=== PATIENT | female | born 1940 | race Caucasian/White ===

== ENCOUNTER 2023-10-22 10:05 | Inpatient (IN) | payer MEDICARE, OTHER, SELFPAY ==
[2023-10-20 13:37] VITALS: BP 143/72; BMI 26.1
[2023-10-20 13:40] VITALS: BP 143/72
[2023-10-20 14:00] VITALS: BP 154/73
[2023-10-20] MEDS: OFIRMEV 100 IV (14:07)
[2023-10-20 14:16] LABS: % Basophils 0.7 % (0-2); % Eosinophils 1.4 % (0-6); % Immature Granulocytes 0.5 % (0-0.5); % Lymphocytes 9.8 % (20.5-51.1); % Monocytes 6.1 % (1.7-9.3); % Neutrophils 81.5 % (42.2-75.2); Absolute Basophils 0.1 10^3/uL (0-0.2); Absolute Eosinophils 0.2 10^3/uL (0-0.7); Absolute Immature Granulocytes 0.1 10^3/uL (0-0.05); Absolute Lymphocytes 1.4 10^3/uL (1.2-3.4); Absolute Monocytes 0.8 10^3/uL (0.1-0.6); Absolute Neutrophils 11.3 10^3/uL (1.4-6.5); Hematocrit 32.9 % (37.0-47.0); Hemoglobin 10.6 g/dL (12.0-16.0); Mean Corp Hgb Conc. 32.2 g/dL (33.0-37.0); Mean Corpuscular Hgb 25.5 pg (27.0-31.0); Mean Corpuscular Volume 79.1 fL (81.0-99.0); Nucleated Red Blood Cells % 0 %; Platelet Count 405 10^3/uL (130-400); Red Blood Cell Count 4.16 10^6/uL (4.20-5.40); Red Cell Dist. Width 15.3 % (11.5-14.5); White Blood Cell Count 13.8 10^3/uL (4.8-10.8)
--- NOTE | 2023-10-20 14:37 | ED.GENMED ---
History of Present Illness
General
Chief Complaint: Musculo-Skeletal Complaint
Source: patient and spouse
Exam Limitations: none
Time Seen by Provider: 10/20/23 13:46
Travel History
Have you had any contact with someone who has COVID-19?: No
Do you have any symptoms of coronavirus? Fever > 100 degrees, chills, cough, shortness of breath, sore throat, loss of taste or smell, muscle aches, or headache?: No
History of Present Illness
History of Present Illness:
83-year-old female fell from her shower chair to wheelchair after positioning in the shower. Complaining of low back pain. No other specific complaints. Unable to sit up to transition.
Past History
Past History
ED Past Medical History: GERD, HTN, Hypercholesterolemia, IDDM and Other ('Encephalitis' - treated with steroids has memory loss and balance problems from this, lumbar compression fracture. Aphasia, Headache, )
ED Past Surgical History: Bowel resection (with Colostomy), Orthopedic (L knee aleksandar. Vertebroplasty) and Tonsilectomy
Social History
Tobacco: Non-smoker
Alcohol: Occasional
Drug: None
Personal:
Living: with family
Employment: Retired
Family History
Family History: Other (nc )
Review of Systems
Review of Systems
All Other Systems: Not applicable
Constitutional: Denies fever or chills
Respiratory: Reports no symptoms
Cardiac: Reports no symptoms
ABD/GI: Reports no symptoms
Phy Exam
Physical Exam
Physical Exam:
TRAUMA EXAM:
VITAL SIGNS: Vital signs reviewed, cooperative
DISTRESS: No active disease
EYES: Pupils reactive, no orbital trauma
NOSE: No deformity or epistaxis
FACE AND SCALP: No scalp or facial trauma, external canals no blood
NECK: Supple nontender
BACK:Back nontender, pelvis stable to compression
RESPIRATORY: No distress, breath sounds normal, no tender chest wall
CARDIAC: Tachycardic and regular no murmur
ABDOMEN: Soft nontender bowel sounds normal
SKIN: Skin intact no bleeding, color normal
EXTREMITIES: Unable to sit up secondary to pain. Points to the lower back although no spinal tenderness. No abrasion noted.
NEUROLOGICAL: Alert, orientedx2, no motor deficits
PSYCH: Mood affect normal
Course
Orders/Labs/Results
Orders:
Orders
10/20/23 13:54
Electrocardiogram (*1) Urgent
Reason for Study: Other
Other Reason for Exam: trauma
Cardiac Monitoring- Treatment ONCE
EKG- Treatment ONCE
CR Chest - 2 Views Urgent
Comment:
Reason For Exam: fall bacl pain
CR Pelvis - 1 Or 2 Views Urgent
Comment:
Reason For Exam: fall back pain
Lumbar Spine, 2 or 3 View [CR Lumbar Spine 2 Or 3 Views] Urgent
Comment:
Reason For Exam: fall. back pain
10/20/23 13:55
Acetaminophen 1000MG/100Ml [Ofirmev] 1,000 mg in 100 ml IV ONCE
Acetaminophen IV Indication:: ED Narcotic Naive Pt-ONCE
10/20/23 13:59
Basic Metabolic Panel Urgent
Complete Blood Count/With Diff Urgent
10/20/23 14:35
Straight cath- Treatment ONCE
10/20/23 Dinner
1800 calorie (15 carb) Diabetic
At Your Request: Limited Participation
10/20/23 15:12
Urinalysis Reflex To Culture Urgent
Date Specimen was Collected: 10/20/23
Time Specimen was Collected: 15:10
Urine Microscopic Reflex Cult Urgent
Urine Culture Urgent
BENJI Source: U
Specimen Description:
Date Specimen was Collected: 10/20/23
Time Specimen was Collected: 15:10
10/20/23 15:42
0.9% Sodium Chloride 500 ml [Nss] 500 ml IV BOLUS
CefTRIAXone [Rocephin] 1,000 mg IV NOW STA
10/20/23 16:11
Insulin Detemir Levemir [Levemir] 40 units Subcutaneous Insulin Syringe [Syringe-Insulin] 0 unit SC ONCE
10/20/23 16:15
Lidocaine [Lidocaine 4% Patch] 1 patch TOPICAL DAILY
10/20/23 16:18
Insulin Detemir Levemir [Levemir] 20 units Subcutaneous Insulin Syringe [Syringe-Insulin] 0 unit SC ONCE
10/20/23 16:27
Admit/Transfer Patient As Directed
Co-Sign Provider:
Level of Care: Observation services
Assign to:: Medical/Surgical
Physician / Group: fatimah charles
Diagnosis: pyuria, fall w/L2 compression fx, vaginal seth, Dm2 hyperglycemia
Code Status As Directed
Resuscitation Status: Do not resuscitate
Reached after discussion with pt or family/Healthcare POA: Yes
Based on pt advanced directive or healthcare POA form: Yes
Decision communicated with: Per patient with Jesus at bedside
DNR Bracelet Application ONCE
10/20/23 16:32
Fluconazole [Diflucan] 150 mg PO NOW STA
10/20/23 18:23
Acetaminophen [Tylenol] 650 mg PO Q4HPRN PRN
Bisacodyl [Dulcolax] 10 mg RECTAL [id number] PRN
Dextrose 50%-Water [Dextrose 50% Syringe] 12.5 grams IV [id number] PRN
Docusate W/Senna [Senokot-S] 1 tablet PO BIDPRN PRN
Enoxaparin Sodium [Lovenox] 40 mg SC QPM
Glucagon [GlucaGen] 1 mg IM PRN PRN
Ketorolac [Toradol] 15 mg IV Q6HPRN PRN
Polyethylene Glycol Powder [Miralax] 17 grams PO DAILYPRN PRN
10/20/23 18:23
Activity As Directed
Activity Level: With Assistance
Comment: Transfers to wheelchair only
Bedside Glucose Monitoring As Directed
Frequency: AC&HS
Comment: Change to q6h if pt on TPN, tube feeding or not eating
Intake/ Output As Directed
Frequency: Per unit guidelines
Vital Signs As Directed
Frequency: Per unit guidelines
Weight As Directed
Frequency: Daily
Ot Eval And Treat Routine
Pt Eval And Treat Routine
Activity Level: With Assistance
DX Deep Vein Thrombosis Video Routine
10/20/23 19:00
METFORMIN HCl [Glucophage] 1,000 mg PO BID AT 0800,1700
10/20/23 20:00
Remove Patch [Remove Lidocaine Patch] See Dose Instructions REMOVE DAILY@1999
10/21/23 06:00
Basic Metabolic Panel IN AM
Complete Blood Count/With Diff IN AM
Glycohemoglobin (HgbA1c) IN AM
10/21/23 07:30
Insulin Aspart Corrective Low [Novolog Flexpen-Low Resistance] See Protocol SC AC
10/21/23 08:00
Diltiazem Extended Release [Cardizem Cd] 240 mg PO DAILY
Metoprolol [Lopressor] 100 mg PO DAILY
Pantoprazole [Protonix] 40 mg PO DAILY
10/21/23 20:00
Remove Patch [Remove Lidocaine Patch] See Dose Instructions REMOVE DAILY@1999
Abnormal Lab Results
10/20/23 10/20/23
13:59 15:12
WBC 13.8 H 10^3/uL
(4.8-10.8)
RBC 4.16 L 10^6/uL
(4.20-5.40)
Hgb 10.6 L g/dL
(12.0-16.0)
Hct 32.9 L %
(37.0-47.0)
MCV 79.1 L fL
(81.0-99.0)
MCH 25.5 L pg
(27.0-31.0)
MCHC 32.2 L g/dL
(33.0-37.0)
RDW 15.3 H %
(11.5-14.5)
Plt Count 405 H 10^3/uL
(130-400)
Abs Immat Gran (auto) 0.1 H 10^3/uL
(0-0.05)
Absolute Neuts (auto) 11.3 H 10^3/uL
(1.4-6.5)
Absolute Monos (auto) 0.8 H 10^3/uL
(0.1-0.6)
Neutrophils % 81.5 H %
(42.2-75.2)
Lymphocytes % 9.8 L %
(20.5-51.1)
Sodium 132 L mmol/L
(135-145)
Glucose 342 H mg/dl
(70-99)
Urine Ketones 2+ A
(Negative)
Ur Occult Blood Reflex 2+ A
(Negative)
Leukocyte Esterase Rfl 2+ A
(Negative)
Urine RBC >100 A /HPF
(0-2)
Urine WBC (Reflex) >100 A /HPF
(0-5)
Urine Bacteria (Reflex) Many A
(Negative)
Urine Glucose 3+ A
(Negative)
10/20/23 13:59
10/20/23 13:59
Vital Signs
Initial and Last Documented VS:
Initial Vital Signs
Temp Pulse Resp BP Pulse Ox
99 F 112 14 143/72 96
10/20/23 13:37 10/20/23 13:37 10/20/23 13:37 10/20/23 13:37 10/20/23 13:37
Last Documented Vital Signs
Temp Pulse Resp BP Pulse Ox
98.0 F 113 18 168/86 96
10/20/23 23:27 10/20/23 23:27 10/20/23 23:27 10/20/23 23:27 10/20/23 23:27
*Radiology
Radiology exam reviewed: preliminary read by ED provider (Negative x-rays) and radiology read reviewed (L2 compression fracture)
*Pulse Oximetry
Patient hypoxic: no
*EKG
Interpreted by ED Provider?: Yes
Interpretation: abnormal
Comparison EKG: changes noted
Heart Rate: 99
Rate: normal
Rhythm: sinus
[place]: normal axis
QRS Pattern: normal QRS
Ischemia: non-specific ST changes
*Accordion Tuner Interpretation
Rate: tachycardiac
Interpretation: abnormal
Heart Rate: 102
Rhythm: sinus
*Critical Care Note
Total Time (30-74mins, 75-104mins- exclusive of procedures): Not Applicable
Update Note
Update Note:
Unable to sit up secondary to pain. Secondary UTI. Inpatient management
ED Attending Note
-
Portions of this chart may have been created with voice recognition software.� Occasional wrong word or��sound alike� substitutions may have occurred due to the inherent limitations of voice recognition software.
Discharge Plan
Departure
Patient Disposition: Admit
Date of Disposition: 10/20/23
Time of Disposition: 15:44
Admit to: Med/Surg
Presentation/result/management discussed w/ accepting MD/DO: Hospitalist
Discharge Problem:
Fall/severe lower back pain, UTI, L2 compression fracture
Interventions
Interventions:
*Risk Screen - Suicide Last Done: 10/20/23 19:55
*General Assessment Last Done: 10/20/23 13:37
*Neglect/Abuse Screening Last Done: 10/20/23 13:37
ED- Fall Risk Assessment Last Done: 10/20/23 13:44
*ED COVID-19 Vaccine History Last Done: 10/20/23 13:37
*Nursing Disposition Last Done: 10/20/23 18:14
ED-Musculoskeletal Assessment Last Done: 10/20/23 13:44
Discharge Date and Time
Discharge Date/Time: 10/20/23 18:15
[2023-10-20 14:53] LABS: Blood Urea Nitrogen 14 mg/dl (7-17); Calcium 9.3 mg/dl (8.4-10.2); Carbon Dioxide 25 mmol/L (22-30); Chloride 98 mmol/L (98-107); Estimated Creatinine Clearance 47 ml/min; Glucose 342 mg/dl (70-99); Potassium 3.8 mmol/L (3.5-5.1); Sodium 132 mmol/L (135-145); eGFR > 60.00
[2023-10-20 15:00] VITALS: BP 129/94
[2023-10-20 15:30] LABS: Urine Albumin Trace (Neg - Trace); Urine Bilirubin Negative (Negative); Urine Character Very Cloudy (Clear); Urine Color Yellow; Urine Glucose 3+ (Negative); Urine Ketone 2+ (Negative); Urine Leukocyte 2+ (Negative); Urine Nitrite Negative (Negative); Urine Occult Blood 2+ (Negative); Urine Specific Gravity 1.025 (<1.030); Urine Urobilinogen Negative (Neg - 1+)
[2023-10-20 15:35] LABS: Urine Squamous Cell 0-2 /LPF (Few)
[2023-10-20 15:36] LABS: Urine White Cell >100 /HPF (0-5)
[2023-10-20 15:37] LABS: Urine Bacteria Many (Negative); Urine Red Blood Cell >100 /HPF (0-2)
--- NOTE | 2023-10-20 15:50 | HPS.HSE ---
Family Physician
<WILLIAM Melendez - Last Filed: 10/20/23 16:38>
-
Family Physician: Paul Rosales
Chief Complaint
<WILLIAM Melendez - Last Filed: 10/20/23 16:38>
-
Fall, back pain, vaginal itching/burning
History of Present Illness
83-year-old female who was transferring from a shower chair to her wheelchair when she fell in the shower. She is complaining of lower back pain and unable to sit upright. Her found her lying on her left side outside of the shower. She is
also complaining of vaginal itching and burning for the last 3 to 4 days. She has history of DM 2 and has current hyperglycemia. She did not take her a.m. Levemir 40 units. She denies headache, LOC, fever, chills, chest pain, palpitations,
shortness breath, cough, abdominal pain, nausea, vomiting, diarrhea. She is past medical history of HTN, HLD, DM2, GERD, lumbar compression fracture, aphasia, headaches, encephalitis, chronic memory loss and balance disorder from prior
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
Medical History
<WILLIAM Melendez - Last Filed: 10/20/23 16:38>
Past Medical History
Past Medical History: Reports Other
Additional Past Medical History:
HTN
HLD
DM2
GERD
lumbar compression fracture
Hx vertebroplasty
aphasia, headaches
encephalitis
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
bowel resection with colostomy.
Past Surgical History: Reports Other
Additional Past Surgical History:
Bowel resection with colostomy
Vertebroplasty 2014
Left knee surgery
Tonsillectomy
Social History
Tobacco: Non-smoker
Alcohol: None
Drug: None
Personal:
Living: With Family ( Jesus)
Employment: Retired
Family History
Family History: Unable to Obtain
Allergies / Home Medications
Allergies reflects when Allergies were last updated in [employer].
Home Medications with original date entered in [employer]
Allergy/Medication List:
Allergies
Allergy/AdvReac Type Severity Reaction Status Date / Time
No Known Allergies Allergy Verified 10/09/22 18:58
Home Medications
diltiazem HCl 240 mg capsule,extended release 24 hr 240 mg PO DAILY ##0 07/23/15
pantoprazole 40 mg tablet,delayed release 40 mg PO DAILY ##0 07/23/15
metoprolol tartrate 100 mg tablet 100 mg PO DAILY 03/25/17
metformin 500 mg tablet 1,000 mg (2 x 500 mg) PO BID 60 days #0 tabs 05/06/18
insulin detemir U-100 100 unit/mL (3 mL) subcutaneous pen (Levemir FlexTouch U-100 Insulin) 40 unit SC DAILY@0800 05/07/18
Review of Systems
<WILLIAM Melendez - Last Filed: 10/20/23 16:38>
-
History Source: Patient and Family ( Jesus)
A 12 point ROS was completed and negative except as noted: Yes
Constitutional: Denies Fever, Fatigue or Chills
EENT: Denies Sore Throat or Runny Nose
Respiratory: Denies Cough or Trouble Breathing
Cardiac: Denies Chest Pain, Diaphoresis, Palpitations or Syncope
Abdomen/GI: Denies Abdominal Pain, Nausea, Vomiting, Diarrhea, Constipated, Bloody Stools or Black Stools
: Reports Incontinence (Chronic wears depends) and Other (Vaginal itching/burning); Denies Dysuria, Frequency, Flank Pain, Difficulty Voiding or Urgency
Musculoskeletal: Reports Other (Lower back pain); Denies Joint Pain or Edema
Skin: Denies Itching or Rash
Neurological: Denies Dizzy, Headache or Weakness
Hematologic/Lymphatic: Reports No Symptoms
Psych: Reports Calm
Physical Exam
<WILLIAM Melendez - Last Filed: 10/20/23 16:38>
Vital Signs
Vital Signs
Temp Pulse Resp BP Pulse Ox
99 F 101 13 129/94 94
10/20/23 13:37 10/20/23 15:00 10/20/23 15:00 10/20/23 15:00 10/20/23 15:00
Physical Exam
General: Comfortable
Respiratory: Clear; No Wheezes, Rales or Rhonchi
Cardiac: S1/S2 and Regular Rhythm; No Murmur, Rub, Gallop or Peripheral Edema
Breast: Deferred by me
GI: Soft, Non Tender, Non Distended, Normal Bowel Sounds and No Hepatosplenomegaly
Rectal: Deferred by Provider
Genito-urinary: Deferred by me
Musculoskeletal: No Clubbing, No Edema and Other (Lumbar tenderness on palpation, distal sensation intact)
Skin: Warm and Dry; No Rash
Neuro: Awake, Alert, Oriented (To name, place, but not all of medical history) and Nonfocal/grossly intact; No Slurred Speech, Facial Droop or Tremors
Psych: Calm
Laboratory Results
<WILLIAM Melendez - Last Filed: 10/20/23 16:38>
-
10/20/23 13:59
10/20/23 13:59
Impression/Plan
<WILLIAM Melendez - Last Filed: 10/20/23 16:38>
-
Impression/plan:
OBS MedSurg
#SIRS with Postive Pyuria asymptomatic
#Hx urine Serratia marcescens 08/17/2022-ceftriaxone/Unasyn, Augmentin, Macrodantin RESISTANT
#-Klebsiella oxytoca 02/18/2020-ampicillin resistant
Positive pyuria, WBC 13.8, 99 F, HR 101, 129/94
-Follow urine culture
-Hold Antibiotics
CXR: Unremarkable chest
#Fall likely secondary to CHornic amb dysfunction
# Back pain with NEW L2 superior endplate fracture 2/2 FALL
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
#Severe DDD L5-S1/osteoporosis
-Lidocaine patch
-Tylenol as needed
-Consult PT/OT
-Fall precautions
Pelvis x-ray/lumbar x-ray:1. New superior endplate fracture of L2 with mild loss of vertebral body height.
2. Chronic superior endplate fractures of L1 and T12 (previously treated with vertebroplasty).
3. Severe discogenic degenerative disease at L5/S1.
4. Moderate discogenic degenerative disease at L4/L5.
5. No radiographic evidence for acute pelvic or proximal femoral fracture.
6. Osteoporosis.
#Vaginal Angeline symptomatic vaginal itching, burning Hx hyperglycemia
-Diflucan 150 mg now
#DM2 with hyperglycemia
BS 342
-Accu-Cheks with SSI, check HgbA1c
-Will give Levemir 40 units subcu now as patient missed a.m. dose
-Continue Levemir subcu 20 units NOW
-Continue Levemir 40 units in a.m., metformin at 1000 mg twice daily
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
#HTN�benign
BP 129/94
-Continue diltiazem 240 mg daily, metoprolol tartrate 100 mg daily
#GERD
-Continue Protonix 40 mg daily
#Bowel perforation resection with colostomy
DVT prophylaxis
Subcu Lovenox
DNR per pt with Jesus present
<Ankush Fowler DO - Last Filed: 10/20/23 17:01>
-
Impression/plan:
OBS MedSurg
#SIRS with Postive Pyuria asymptomatic
#Hx urine Serratia marcescens 08/17/2022-ceftriaxone/Unasyn, Augmentin, Macrodantin RESISTANT
#-Klebsiella oxytoca 02/18/2020-ampicillin resistant
Positive pyuria, WBC 13.8, 99 F, HR 101, 129/94
-Follow urine culture
-Hold Antibiotics
CXR: Unremarkable chest
#Fall likely secondary to CHornic amb dysfunction
# Back pain with NEW L2 superior endplate fracture / FALL
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
#Severe DDD L5-S1/osteoporosis
-Lidocaine patch
-Tylenol as needed
-Consult PT/OT
-Fall precautions
Pelvis x-ray/lumbar x-ray:1. New superior endplate fracture of L2 with mild loss of vertebral body height.
2. Chronic superior endplate fractures of L1 and T12 (previously treated with vertebroplasty).
3. Severe discogenic degenerative disease at L5/S1.
4. Moderate discogenic degenerative disease at L4/L5.
5. No radiographic evidence for acute pelvic or proximal femoral fracture.
6. Osteoporosis.
#Vaginal Angeline symptomatic vaginal itching, burning Hx hyperglycemia
-Diflucan 150 mg now
#DM2 with hyperglycemia
BS 342
-Accu-Cheks with SSI, check HgbA1c
-Will give Levemir 40 units subcu now as patient missed a.m. dose
-Continue Levemir subcu 20 units NOW
-Continue Levemir 40 units in a.m., metformin at 1000 mg twice daily
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
#HTN�benign
BP 129/94
-Continue diltiazem 240 mg daily, metoprolol tartrate 100 mg daily
#GERD
-Continue Protonix 40 mg daily
#Bowel perforation resection with colostomy
DVT prophylaxis
Subcu Lovenox
DNR per pt with Jesus present
Attending Note:
Patient seen/examined and discussed with LUIS ANTONIO Lay and I agree with her note.
Gen-AAOx3, NAD
HEENT-NC, AT, anicteric, clear oral mm
Neck-supple
CV-reg, no M, +S1/S2
Lungs-clear B/L
Abd-soft, NT, ND
Ext-no edema
Musculoskeletal-no cyanosis, clubbing
Skin-warm and dry
Neuro-grossly non-focal
Psych-calm, cooperative
Intractable back pain - due to lumbar vertebral compression fracture. Admit to Med/Surg for pain control. PT/OT consult.
Acute traumatic L2 Vertebral compression fracture - due to fall and underlying osteoporosis. Start IV Toradol as needed, acetaminophen as needed, Lidoderm patch, PT.
If no improvement in pain with conservative management, consider vertebroplasty. Discussed with patient and .
Chronic vertebral compression fractures -involving T12, L1. Treated with vertebroplasty in 2014.
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 Does transfer. 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
DM2 with hyperglycemia -glucose 342 on BMP. Has not taken her diabetes medications today. Will resume. Check hemoglobin A1c.
Pseudohyponatremia -due to hyperglycemia.
Chronic anemia -hemoglobin at baseline.
Asymptomatic pyuria -urinalysis noted. Denies UTI symptoms. Pyuria could be related to vaginitis as she has vaginal symptoms. Patient unclear as to whether or not she has a vaginal discharge. Will give an empiric dose of fluconazole.
DNR
[2023-10-20] MEDS: NSS 500 IV (15:51)
[2023-10-20] MEDS: ROCEPHIN 1000 MG IV (15:52)
[2023-10-20 16:55] LABS: Glucose - Point of Care 411 mg/dl (70-99)
[2023-10-20] MEDS: LIDOCAINE 4% PATCH 1 PATCH TOPICAL (16:55)
[2023-10-20] MEDS: DIFLUCAN 150 MG PO (16:55)
[2023-10-20] MEDS: LEVEMIR 0.200000000000000011 UNITS SC (16:58)
[2023-10-20 19:00] VITALS: BP 152/79; BMI 26.4
[2023-10-20] MEDS: LOVENOX 40 MG SC (20:29)
[2023-10-20] MEDS: GLUCOPHAGE 1000 MG PO (20:29)
[2023-10-20 21:56] LABS: Glucose - Point of Care 447 mg/dl (70-99)
[2023-10-20 22:16] LABS: Glucose 420 mg/dl (70-99)
[2023-10-20] MEDS: NOVOLOG FLEXPEN 6 UNITS SC (22:30)
[2023-10-20 23:27] VITALS: BP 168/86
[2023-10-21 00:36] LABS: Glucose - Point of Care 205 mg/dl (70-99)
--- NOTE | 2023-10-21 04:45 | DOWNTIME ---
There was a [employer]at Cover [employer]er Downtime on 10/21/2023 from 0100 to 10/21/2023 at 0439. Downtime documentation of patient's care, including medication administrations, has been reconciled in the electronic record per guidelines. Refer to the
patient's paper chart under the miscellaneous tab to see printed paper medication records and downtime forms.
[2023-10-21 05:03] VITALS: BMI 26.3
[2023-10-21 07:55] VITALS: BP 154/82
[2023-10-21 08:19] LABS: Glucose - Point of Care 171 mg/dl (70-99)
[2023-10-21 08:40] VITALS: BP 154/81; PULSE 112
[2023-10-21 08:45] VITALS: BP 156/78; O2SAT 98
[2023-10-21] MEDS: GLUCOPHAGE 1000 MG PO ×2 (08:59→17:21)
[2023-10-21] MEDS: CARDIZEM CD 240 MG PO (08:59)
[2023-10-21] MEDS: LEVEMIR 0.400000000000000022 UNITS SC (08:59)
[2023-10-21] MEDS: NOVOLOG FLEXPEN-LOW RESISTANCE 1 UNITS SC (08:59)
[2023-10-21] MEDS: LOPRESSOR 100 MG PO (09:00)
[2023-10-21] MEDS: PROTONIX 40 MG PO (09:00)
[2023-10-21] MEDS: LIDOCAINE 4% PATCH 1 PATCH TOPICAL (09:00)
[2023-10-21] MEDS: TORADOL 15 MG IV ×2 (09:10→15:11)
--- NOTE | 2023-10-21 09:19 | W.PN.HOSP.TC ---
Today's Communication/Plan
-
Back brace
Analgesics
PT
Assessment / Plan
Assessment / Plan
Gen-AAOx3, NAD
HEENT-NC, AT, anicteric, clear oral mm
Neck-supple
CV-reg, no M, +S1/S2
Lungs-clear B/L
Abd-soft, NT, ND
Ext-no edema
Musculoskeletal-no cyanosis, clubbing
Skin-warm and dry
Neuro-grossly non-focal
Psych-calm, cooperative
Intractable back pain - due to lumbar vertebral compression fracture. TLSO back brace ordered, should wear it when out of bed. Discussed with nursing. PT/OT. Continue analgesics.
Acute traumatic L2 Vertebral compression fracture - due to fall and underlying osteoporosis. Start IV Toradol as needed, acetaminophen as needed, Lidoderm patch, PT.
If no improvement in pain with conservative management, consider vertebroplasty. Discussed with patient and .
Chronic vertebral compression fractures -involving T12, L1. Treated with vertebroplasty in 2014.
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 Does transfer. 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
DM2 with hyperglycemia -glucose 171 this morning. Check hemoglobin A1c. Levemir and metformin resumed.
Pseudohyponatremia -due to hyperglycemia.
Chronic anemia -hemoglobin at baseline.
Asymptomatic pyuria -urinalysis noted. Denies UTI symptoms. Pyuria could be related to vaginitis as she has vaginal symptoms. Patient unclear as to whether or not she has a vaginal discharge. Will give an empiric dose of fluconazole.
DNR
Anticipated Discharge: 24 - 48 hours
Subjective/Interval History
-
Date of Service: October 21, 2023
Patient seen and examined. Sitting in the chair. Still with significant pain with movement.
Objective Data
-
Labs:
Laboratory Results
10/20/23 10/21/23
21:54 08:56
WBC Pending
Hgb Pending
Hct Pending
Plt Count Pending
Sodium Pending
Potassium Pending
Chloride Pending
Carbon Dioxide Pending
BUN Pending
Creatinine Pending
Glucose 420 H Pending
Calcium Pending
Vital Signs:
Vital Signs
Temp Pulse Resp BP Pulse Ox
98.3 F 111 16 154/82 95
10/21/23 07:55 10/21/23 07:55 10/21/23 07:55 10/21/23 07:55 10/21/23 07:55
I&O
10/20/23 10/21/23 10/22/23
06:59 06:59 06:59
Intake Total 360 / 360
Balance 360 / 360
Review of Systems
-
History Source: Patient
All other systems: Reviewed and negative
[2023-10-21 10:19] LABS: % Basophils 0.6 % (0-2); % Eosinophils 2.1 % (0-6); % Immature Granulocytes 0.7 % (0-0.5); % Lymphocytes 16.1 % (20.5-51.1); % Monocytes 6.3 % (1.7-9.3); % Neutrophils 74.2 % (42.2-75.2); Absolute Basophils 0.1 10^3/uL (0-0.2); Absolute Eosinophils 0.3 10^3/uL (0-0.7); Absolute Immature Granulocytes 0.1 10^3/uL (0-0.05); Absolute Lymphocytes 1.9 10^3/uL (1.2-3.4); Absolute Monocytes 0.8 10^3/uL (0.1-0.6); Absolute Neutrophils 8.9 10^3/uL (1.4-6.5); Hematocrit 33.8 % (37.0-47.0); Hemoglobin 10.5 g/dL (12.0-16.0); Mean Corp Hgb Conc. 31.1 g/dL (33.0-37.0); Mean Corpuscular Hgb 24.6 pg (27.0-31.0); Mean Corpuscular Volume 79.2 fL (81.0-99.0); Nucleated Red Blood Cells % 0 %; Platelet Count 384 10^3/uL (130-400); Red Blood Cell Count 4.27 10^6/uL (4.20-5.40); Red Cell Dist. Width 15.4 % (11.5-14.5)
[2023-10-21 11:11] LABS: Blood Urea Nitrogen 10 mg/dl (7-17); Calcium 9.5 mg/dl (8.4-10.2); Carbon Dioxide 24 mmol/L (22-30); Chloride 99 mmol/L (98-107); Estimated Creatinine Clearance 60 ml/min; Glucose 172 mg/dl (70-99); Potassium 4.5 mmol/L (3.5-5.1); Sodium 132 mmol/L (135-145); eGFR > 60.00
[2023-10-21 11:58] LABS: Glucose - Point of Care 343 mg/dl (70-99)
[2023-10-21] MEDS: NOVOLOG FLEXPEN-LOW RESISTANCE 4 UNITS SC (12:41)
[2023-10-21 12:48] LABS: Glycohemoglobin (HgbA1c) 11.8 % (4.0-5.6)
[2023-10-21 15:55] VITALS: BP 126/59
[2023-10-21 17:14] LABS: Glucose - Point of Care 299 mg/dl (70-99)
[2023-10-21] MEDS: LOVENOX 40 MG SC (17:21)
[2023-10-21] MEDS: NOVOLOG FLEXPEN-LOW RESISTANCE 3 UNITS SC (17:22)
[2023-10-21] MEDS: NOVOLOG FLEXPEN 6 UNITS SC (17:22)
[2023-10-21 21:53] LABS: Glucose - Point of Care 258 mg/dl (70-99)
[2023-10-21 23:00] VITALS: BP 151/67
[2023-10-22 08:00] VITALS: BP 167/82
--- NOTE | 2023-10-22 09:15 | W.PN.HOSP.TC ---
Today's Communication/Plan
-
Add oxycodone as needed
Bowel regimen
Change Toradol to [id number]
Assessment / Plan
Assessment / Plan
Gen-AAOx3, NAD
HEENT-NC, AT, anicteric, clear oral mm
Neck-supple
CV-reg, no M, +S1/S2
Lungs-clear B/L
Abd-soft, NT, ND
Ext-no edema
Musculoskeletal-no cyanosis, clubbing
Skin-warm and dry
Neuro-grossly non-focal
Psych-calm, cooperative
Intractable back pain - due to lumbar vertebral compression fracture. TLSO back brace when out of bed. Will change Toradol to every 6 hours [id number]. Add oxycodone 5 mg every 4 hours as needed. Bowel regimen. Continue PT. Offered
vertebroplasty but will need MRI first. Patient undecided about whether or not she wants to pursue.
Acute traumatic L2 Vertebral compression fracture - due to fall and underlying osteoporosis.
Chronic vertebral compression fractures -involving T12, L1. Treated with vertebroplasty in 2014.
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 Does transfer. 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
DM2 with hyperglycemia - Hemoglobin A1c 11.8%. Continue Levemir 40 units daily, NovoLog 6 units AC, low resistance NovoLog scale.
Pseudohyponatremia -due to hyperglycemia.
Chronic anemia -hemoglobin at baseline.
Asymptomatic pyuria -urinalysis noted. Denies UTI symptoms. Pyuria could be related to vaginitis as she has vaginal symptoms. Given a dose of fluconazole on admission.
DNR
Dispo -PT is recommending SNF. Hope to try to get her pain under better control prior to discharge.
Anticipated Discharge: 24 - 48 hours
Subjective/Interval History
-
Date of Service: October 22, 2023
Patient seen and examined. Still with severe lower back pain.
Objective Data
-
Vital Signs:
Vital Signs
Temp Pulse Resp BP Pulse Ox
99.0 F 100 18 167/82 96
10/22/23 08:00 10/22/23 08:00 10/22/23 08:00 10/22/23 08:00 10/22/23 08:00
I&O
10/21/23 10/22/23 10/23/23
06:59 06:59 06:59
Intake Total 360 / 360 600 / 600
Balance 360 / 360 600 / 600
Review of Systems
-
History Source: Patient
All other systems: Reviewed and negative
[2023-10-22 09:19] LABS: Glucose - Point of Care 173 mg/dl (70-99)
[2023-10-22] MEDS: CARDIZEM CD 240 MG PO (10:13)
[2023-10-22] MEDS: PROTONIX 40 MG PO (10:13)
[2023-10-22] MEDS: LIDOCAINE 4% PATCH 1 PATCH TOPICAL (10:13)
[2023-10-22] MEDS: LOPRESSOR 100 MG PO (10:13)
[2023-10-22] MEDS: LEVEMIR 0.400000000000000022 UNITS SC (10:13)
[2023-10-22] MEDS: GLUCOPHAGE 1000 MG PO ×2 (10:13→17:55)
[2023-10-22] MEDS: NOVOLOG FLEXPEN 6 UNITS SC ×3 (10:14→17:54)
[2023-10-22] MEDS: TORADOL 15 MG IV ×3 (10:14→21:25)
[2023-10-22] MEDS: NOVOLOG FLEXPEN-LOW RESISTANCE 1 UNITS SC (10:14)
[2023-10-22 12:18] LABS: Glucose - Point of Care 286 mg/dl (70-99)
[2023-10-22] MEDS: NOVOLOG FLEXPEN-LOW RESISTANCE 3 UNITS SC (12:29)
--- NOTE | 2023-10-22 12:31 | VNURNOTE ---
Home Health Liaison met with patient and spouse at 1530 on 10/20 to discuss [facility] nurse/therapy, visits, schedule and homebound status. Patient is agreeable and understands that visits at home will be 2-3 x per week to assess and teach medical
management. Patient's spouse Jesus is her primary caregiver and insists that he is able to manage her at home. Private caregivers discussed and he stated that they have someone M-W-F for couple of hours.
[facility] brochure provided with contact information. Patient is aware that [facility] will contact them for start of care in 1-2 days after discharge from .
[facility] referral completed in saved mode until plan is clearer and patient is closer to discharge.
[2023-10-22] MEDS: TORADOL IV (12:34)
--- NOTE | 2023-10-22 14:57 | CM ---
Patient seen bedside with spouse.
Patient lives in [id number] home with spouse.Patient non ambulatory but can transfe to WC.
Patient has 2 steps into the home, but uses a ramp.
Patient has assist from .
Patient had [facility] in the past and was at [facility].
PT?OT recommending skilled rehab, patient and spouse declined.
They would like home with [facility].
IMM completed.
PCP: Dr Rosales
Pharmacy: [facility] [address]
Plan: home with [facility]
[2023-10-22 15:00] VITALS: BP 144/68; PULSE 79; O2SAT 97
[2023-10-22 16:00] VITALS: BP 137/64
[2023-10-22 17:45] LABS: Glucose - Point of Care 302 mg/dl (70-99)
[2023-10-22] MEDS: LOVENOX 40 MG SC (17:55)
[2023-10-22] MEDS: NOVOLOG FLEXPEN-LOW RESISTANCE 4 UNITS SC (17:55)
[2023-10-22 21:45] LABS: Glucose - Point of Care 243 mg/dl (70-99)
[2023-10-22 23:10] VITALS: BP 113/85
[2023-10-23] MEDS: TORADOL 15 MG IV ×2 (04:25→11:50)
[2023-10-23 07:52] LABS: Glucose - Point of Care 109 mg/dl (70-99)
[2023-10-23] MEDS: NOVOLOG FLEXPEN-LOW RESISTANCE SC (08:07)
[2023-10-23 08:12] VITALS: BP 134/53
--- NOTE | 2023-10-23 08:48 | W.PN.HOSP.TC ---
Today's Communication/Plan
-
Adjust insulin
Discharge
Assessment / Plan
Assessment / Plan
Gen-AAOx3, NAD
HEENT-NC, AT, anicteric, clear oral mm
Neck-supple
CV-reg, no M, +S1/S2
Lungs-clear B/L
Abd-soft, NT, ND
Ext-no edema
Musculoskeletal-no cyanosis, clubbing
Skin-warm and dry
Neuro-grossly non-focal
Psych-calm, cooperative
Intractable back pain - due to lumbar vertebral compression fracture. TLSO back brace when out of bed. Pain much improved with [id number] anti-inflammatory, Toradol. Can discharge on Celebrex. Continue to use back brace at home. Arrange
for visiting nurse and home PT. Discussed with patient and and they are agreeable with plan. Case management informed.
Acute traumatic L2 Vertebral compression fracture - due to fall and underlying osteoporosis.
Chronic vertebral compression fractures -involving T12, L1. Treated with vertebroplasty in 2014.
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 Does transfer. 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
DM2 with hyperglycemia - Hemoglobin A1c 11.8%. Continue Levemir 40 units daily and metformin. We added NovoLog here in the hospital. Will increase dose to 10 units before meals. Discussed with patient's regarding diabetes regimen on
discharge. Close outpatient follow-up with PCP next week. and visiting nurse administer her insulin at home.
Pseudohyponatremia -due to hyperglycemia.
Chronic anemia -hemoglobin at baseline.
Asymptomatic pyuria -urinalysis noted. Denies UTI symptoms. Pyuria could be related to vaginitis as she has vaginal symptoms. Given a dose of fluconazole on admission.
DNR
Dispo -plan to discharge home today with visiting nurse and home PT. Patient and agreeable. Updated case management.
32 minutes spent in discharge process.
Anticipated Discharge: Today
Subjective/Interval History
-
Date of Service: October 23, 2023
Patient seen and examined. Feeling better. Less pain today. No complaints.
Objective Data
-
Vital Signs:
Vital Signs
Temp Pulse Resp BP Pulse Ox
98 F 86 18 134/53 95
10/23/23 08:12 10/23/23 08:12 10/23/23 08:12 10/23/23 08:12 10/23/23 08:12
I&O
10/22/23 10/23/23 10/24/23
06:59 06:59 06:59
Intake Total 600 / 600 480 / 480 240 / 240
Balance 600 / 600 480 / 480 240 / 240
Review of Systems
-
History Source: Patient
All other systems: Reviewed and negative
[2023-10-23] MEDS: LOPRESSOR 100 MG PO (08:52)
[2023-10-23] MEDS: GLUCOPHAGE 1000 MG PO (08:52)
[2023-10-23] MEDS: LEVEMIR 0.400000000000000022 UNITS SC (08:53)
[2023-10-23] MEDS: CARDIZEM CD 240 MG PO (08:53)
[2023-10-23] MEDS: PROTONIX 40 MG PO (08:53)
[2023-10-23] MEDS: NOVOLOG FLEXPEN 6 UNITS SC (08:54)
[2023-10-23] MEDS: LIDOCAINE 4% PATCH 1 PATCH TOPICAL (08:55)
--- NOTE | 2023-10-23 09:01 | W.DS.TRANS ---
DC Summary - Framing Inspector
-
Discharge Instructions:
Discharge Diagnosis/Procedures L2 vertebral compression fracture, uncontrolled
diabetes
Diet Diabetic, Carb Controlled
Activity With assistance,As tolerated
Driving Restrictions No driving
Bathing Restrictions None
Other Services VN,PT
Instructions:
Stand-Alone Forms:
Changes to Home Medications: No
Discharge Medications:
DC Medications w/original date entered in [employer]
diltiazem HCl 240 mg capsule,extended release 24 hr 240 mg PO DAILY ##0 07/23/15
pantoprazole 40 mg tablet,delayed release 40 mg PO DAILY ##0 07/23/15
metoprolol tartrate 100 mg tablet 100 mg PO DAILY 03/25/17
metformin 500 mg tablet 1,000 mg (2 x 500 mg) PO BID 60 days #0 tabs 05/06/18
insulin detemir U-100 100 unit/mL (3 mL) subcutaneous pen (Levemir FlexTouch U-100 Insulin) 40 unit SC DAILY@0800 Diabetes 05/07/18
celecoxib 200 mg capsule (Celebrex) 200 mg PO BID #20 caps 10/23/23
insulin aspart U-100 100 unit/mL (3 mL) subcutaneous pen 10 unit (0.1 mL) SC AC #15 mL 10/23/23
lidocaine 4 % topical patch 1 patch topical DAILY #10 ea 10/23/23
polyethylene glycol 3350 17 gram oral powder packet (HealthyLax) 17 g PO DAILYPRN PRN constipation #0 ea 10/23/23
Home Medication Changes
Pending Results: No
--- NOTE | 2023-10-23 09:30 | CM ---
Addendum entered by Hien Alanis 10/23/23 14:00:
Per nursing, spouse comfortable with maneuvering patient at home.
Plan: home with [facility]
Addendum entered by Hien Alanis 10/23/23 11:59:
Spouse unsure if he will be able to maneuver patient at home.
Spouse here for lunch and will see if he can get patient to chair, if he can move her he will take home.
Otherwise he would like a referral to [facility].
PT/OT recommending skilled rehab.
Will place referral just in case, skilled rehab is needed.
Original Note:
Patient seen bedside.
Patient for d/c home today, spouse will transport.
Plan:home with [facility]
--- NOTE | 2023-10-23 09:31 | VNURNOTE ---
[facility] referral completed in [facility] after review of chart.
[2023-10-23] MEDS: TYLENOL 650 MG PO (11:50)
[2023-10-23 12:03] LABS: Glucose - Point of Care 207 mg/dl (70-99)
[2023-10-23] MEDS: NOVOLOG FLEXPEN 10 UNITS SC (12:47)
[2023-10-23] MEDS: NOVOLOG FLEXPEN-LOW RESISTANCE 2 UNITS SC (12:47)
[2023-10-23 12:48] VITALS: BP 118/58
--- NOTE | 2023-10-23 13:36 | W.DS.TRANS ---
DC Summary - Hand Turner
-
Discharge Instructions:
Discharge Diagnosis/Procedures L2 vertebral compression fracture, uncontrolled
diabetes
Diet Diabetic, Carb Controlled
Activity With assistance,As tolerated
Driving Restrictions No driving
Bathing Restrictions None
Other Services VN,PT
Instructions:
Stand-Alone Forms:
Changes to Home Medications: No
Discharge Medications:
DC Medications w/original date entered in [employer]
diltiazem HCl 240 mg capsule,extended release 24 hr 240 mg PO DAILY ##0 07/23/15
pantoprazole 40 mg tablet,delayed release 40 mg PO DAILY ##0 07/23/15
metoprolol tartrate 100 mg tablet 100 mg PO DAILY 03/25/17
metformin 500 mg tablet 1,000 mg (2 x 500 mg) PO BID 60 days #0 tabs 05/06/18
insulin detemir U-100 100 unit/mL (3 mL) subcutaneous pen (Levemir FlexTouch U-100 Insulin) 40 unit SC DAILY@0800 Diabetes 05/07/18
celecoxib 200 mg capsule (Celebrex) 200 mg PO BID #20 caps 10/23/23
insulin lispro 100 unit/mL subcutaneous pen (Humalog KwikPen (U-100) Insulin) 10 unit (0.1 mL) SC AC #15 mL 10/23/23
lidocaine 4 % topical patch 1 patch topical DAILY #10 ea 10/23/23
polyethylene glycol 3350 17 gram oral powder packet (HealthyLax) 17 g PO DAILYPRN PRN constipation #0 ea 10/23/23
Home Medication Changes
Pending Results: No
== END 2023-10-23 14:41 | disposition home health service (06) | DRG 544 ==
LOC: 4 WEST ACU 10:05
PROVIDERS: Clinical Nurse Specialist Family Health; ADMITTING PHYSICIAN Hospitalist; EMERGENCY PHYSICIAN Emergency Medicine; FAMILY PHYSICIAN Internal Medicine
DX: M80.08XA Age-related osteoporosis with current pathological fracture, vertebra(e), initial encounter for fracture (principal); I10 Essential (primary) hypertension; K21.9 Gastro-esophageal reflux disease without esophagitis; F44.4 Conversion disorder with motor symptom or deficit; E78.00 Pure hypercholesterolemia, unspecified; M51.37 Other intervertebral disc degeneration, lumbosacral region; M81.0 Age-related osteoporosis without current pathological fracture; E11.65 Type 2 diabetes mellitus with hyperglycemia; Z66 Do not resuscitate; B37.31 Acute candidiasis of vulva and vagina; W07.XXXA Fall from chair, initial encounter; D64.9 Anemia, unspecified; Z79.4 Long term (current) use of insulin; Z79.899 Other long term (current) drug therapy; Z86.61 Personal history of infections of the central nervous system
CPT/HCPCS: 71046; 72100; 72170; 80048; 81003; 81015; 82947; 82962; 83036; 85025; 87086; 93005; 96361; 96374; 96375; 97163; 97166; 97530; 97535; 99285

== ENCOUNTER 2023-10-24 22:49 | Emergency (ER) | payer MEDICARE, OTHER, SELFPAY ==
[2023-10-24 22:52] VITALS: BP 138/52
[2023-10-24 22:53] VITALS: BP 138/52
[2023-10-24 22:57] VITALS: BMI 25.4
[2023-10-24 22:57] LABS: Glucose - Point of Care 222 mg/dl (70-99)
[2023-10-24 23:00] VITALS: BP 123/50
[2023-10-24 23:13] LABS: % Basophils 0.6 % (0-2); % Eosinophils 2.7 % (0-6); % Immature Granulocytes 0.4 % (0-0.5); % Lymphocytes 14.9 % (20.5-51.1); % Monocytes 7.2 % (1.7-9.3); % Neutrophils 74.2 % (42.2-75.2); Absolute Basophils 0.1 10^3/uL (0-0.2); Absolute Eosinophils 0.3 10^3/uL (0-0.7); Absolute Lymphocytes 1.4 10^3/uL (1.2-3.4); Absolute Monocytes 0.7 10^3/uL (0.1-0.6); Hematocrit 33.1 % (37.0-47.0); Hemoglobin 10.7 g/dL (12.0-16.0); Mean Corp Hgb Conc. 32.3 g/dL (33.0-37.0); Mean Corpuscular Hgb 25.5 pg (27.0-31.0); Mean Platelet Volume 8.7 fL (7.4-10.4); Nucleated Red Blood Cells % 0 %; Platelet Count 418 10^3/uL (130-400); Red Blood Cell Count 4.19 10^6/uL (4.20-5.40); Red Cell Dist. Width 15.9 % (11.5-14.5); White Blood Cell Count 9.4 10^3/uL (4.8-10.8)
[2023-10-24 23:26] LABS: ALT (SGPT) 15 U/L (0-35); AST (SGOT) 20 U/L (14-36); Albumin 3.4 g/dl (3.5-5.0); Alkaline Phosphatase 130 U/L (38-126); Blood Urea Nitrogen 20 mg/dl (7-17); Calcium 9.3 mg/dl (8.4-10.2); Carbon Dioxide 24 mmol/L (22-30); Chloride 103 mmol/L (98-107); Estimated Creatinine Clearance 42 ml/min; Glucose 217 mg/dl (70-99); Potassium 4.1 mmol/L (3.5-5.1); Sodium 133 mmol/L (135-145); Total Bilirubin 0.2 mg/dl (0.2-1.3); Total Protein 6.6 g/dl (6.3-8.2); eGFR > 60.00
[2023-10-25] VITALS (10 sets, daily range): BP systolic 92–157; BP diastolic 48–89; PULSE 88; O2SAT 98
[2023-10-25 00:29] LABS: Glucose - Point of Care 128 mg/dl (70-99)
--- NOTE | 2023-10-25 01:05 | ED.GENMED ---
History of Present Illness
<Ann Hernandez DO - Last Filed: 10/25/23 07:45>
General
Chief Complaint: Blood Sugar Problem
Source: patient, spouse and previous hospital records (Recent hospitalization October 21 until October 22 after suffering a fall, L2 compression fracture, treated for pain control as well as poorly controlled diabetes with hyperglycemia.)
Exam Limitations: none
Time Seen by Provider: 10/25/23 00:13
Nursing documentation reviewed up to this point in time: agreed with
Travel History
Have you had any contact with someone who has COVID-19?: No
Do you have any symptoms of coronavirus? Fever > 100 degrees, chills, cough, shortness of breath, sore throat, loss of taste or smell, muscle aches, or headache?: No
History of Present Illness
History of Present Illness:
This is an 83-year-old woman who resides at home with her . She has history of chronic low back pain with previous lumbar fractures, chronic ambulatory dysfunction, for the most part wheelchair-bound but can stand and transfer. She suffered
a fall at home and was hospitalized October 21 until October 22 due to intractable back pain found to have an L2 vertebral compression fracture. Pain was controlled with Celebrex, lidocaine patches and rare doses of oxycodone. She also has history of
insulin requiring diabetes and was found to have poorly controlled diabetes with elevated blood sugars, hemoglobin A1c of 11.8.
She was continued on Levemir 40 mg in the evening, Humalog 10 units was added prior to meals.
She was recommended to be discharged to fpc facility for rehabilitation but both patient and declined.
gave his 10 units of lispro insulin prior to breakfast this morning and then again prior to dinner. He admits that she had limited intake for dinner and tonight was found to be quite confused, diaphoretic with initial blood sugar as
per EMS of 28. IV established and she was given a bolus of D10 with improvement in prehospital blood sugar to 258. With improvement in blood sugar prompt resolution of confusion and diaphoresis.
According to she has had no prior episodes of hypoglycemia.
He also admits that since being discharged to home 2 days ago he has had marked difficulty caring for his , she has had significant back pain when he attempts to reposition her, he has been unable to get her up out of bed due to back pain and he
now regrets his decision and believes his requires fpc care. He does not feel he can care for her at home with her acute back pain/acute lumbar compression fracture.
Patient did have 2 doses of Celebrex yesterday as well as 1 dose of oxycodone at 1 PM. has been unable to apply lidocaine patch to his 's back due to difficulty repositioning her.
Past History
<Ann Hernandez DO - Last Filed: 10/25/23 07:45>
Past History
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 Aphasia, Headache, ) and Other (L2 vertebral compression
fracture, chronic ambulatory dysfunction/wheelchair-bound)
ED Past Surgical History: Bowel resection (with Colostomy), Orthopedic (L knee aleksandar. Vertebroplasty) and Tonsilectomy
Social History
Tobacco: Non-smoker
Alcohol: Occasional
Drug: None
Personal:
Living: with family
Employment: Retired
Family History
Family History: Other (nc )
Phy Exam
<Ann Hernandez DO - Last Filed: 10/25/23 07:45>
Physical Exam
Physical Exam:
GENERAL: 83-year-old woman appears her stated age, she is awake and alert, appears chronically debilitated but easily communicative. is at bedside.
EYE: pupils equal and reactive. anicteric
NECK: Supple, nontender, no meningismus, no significant adenopathy.
ENT: posterior pharynx is clear, oral mucosa is moist. No rhinorrhea.
CARDIAC: Regular rate and rhythm. no murmur.
LUNGS: Clear breath sounds bilaterally, no acute respiratory distress, no wheezes/rales/rhonchi
ABDOMEN: Rotund, soft, nondistended, without focal tenderness, normoactive BS.
BACK: Mild to moderate tenderness mid to upper lumbar spine. No soft tissue swelling, no step-off deformity.
NEUROLOGICAL: Alert and oriented x3, no focal neuro deficits.
SKIN: Warm and dry, mildly pale in color, skin intact. No rash.
MUSCULOSKELETAL: No C/C/E. peripheral pulses are full and equal b/l. No palpable tenderness.
PSYCH: Normal and appropriate interaction.
Course
<Ann Hernandez, DO - Last Filed: 10/25/23 07:45>
Orders/Labs/Results
Orders:
Orders
10/24/23 23:06
CMP [Comprehensive Metabolic Panel] Urgent
Complete Blood Count/With Diff Urgent
10/24/23 23:14
EKG- Treatment ONCE
10/25/23
Electrocardiogram (*1) Stat
Reason for Study: Chest Pain
Comment: NO ORDER RECIEVED
10/25/23 00:20
Bedside Glucose- Treatment ONCE
10/25/23 01:06
Lidocaine [Lidocaine 4% Patch] 1 patch TOPICAL NOW STA
10/25/23 01:30
Bedside Glucose- Treatment ONCE
10/25/23 01:32
Case Management Consult ONCE
Case Management Consult: [facility] Placement
Requested By:: PT/FAMILY
Comment: recent hospitalization for acute LBP, L2 comp fx after fall. Recommended SNF which pt/
declined. Since d/c 2 days ago he admits that he can not take care of her, unable to get her
OOB d/t back pain. Requesting SNF-[facility]
10/25/23 01:34
Physical Therapy Consult [Pt Eval And Treat] Urgent
Treatment: PT eval for SNF eligibility
Activity Level: Out of Bed- Wheelchair
10/25/23 02:30
Bedside Glucose- Treatment ONCE
Abnormal Lab Results
10/24/23 10/24/23 10/25/23
22:52 23:06 00:28
RBC 4.19 L 10^6/uL
(4.20-5.40)
Hgb 10.7 L g/dL
(12.0-16.0)
Hct 33.1 L %
(37.0-47.0)
MCV 79.0 L fL
(81.0-99.0)
MCH 25.5 L pg
(27.0-31.0)
MCHC 32.3 L g/dL
(33.0-37.0)
RDW 15.9 H %
(11.5-14.5)
Plt Count 418 H 10^3/uL
(130-400)
Absolute Neuts (auto) 7.0 H 10^3/uL
(1.4-6.5)
Absolute Monos (auto) 0.7 H 10^3/uL
(0.1-0.6)
Lymphocytes % 14.9 L %
(20.5-51.1)
Sodium 133 L mmol/L
(135-145)
BUN 20 H mg/dl
(7-17)
Glucose 217 H mg/dl
(70-99)
Alkaline Phosphatase 130 H U/L
(38-126)
Albumin 3.4 L g/dl
(3.5-5.0)
POC Glucose 222 H mg/dl 128 H mg/dl
(70-99) (70-99)
10/25/23 10/25/23 10/25/23
03:02 04:04 05:06
RBC
Hgb
Hct
MCV
MCH
MCHC
RDW
Plt Count
Absolute Neuts (auto)
Absolute Monos (auto)
Lymphocytes %
Sodium
BUN
Glucose
Alkaline Phosphatase
Albumin
POC Glucose 139 H mg/dl 185 H mg/dl 230 H mg/dl
(99) (99) (99)
10/25/23
08:35
RBC
Hgb
Hct
MCV
MCH
MCHC
RDW
Plt Count
Absolute Neuts (auto)
Absolute Monos (auto)
Lymphocytes %
Sodium
BUN
Glucose
Alkaline Phosphatase
Albumin
POC Glucose 146 H mg/dl
()
10/24/23 23:06
10/24/23 23:06
Vital Signs
Initial and Last Documented VS:
Initial Vital Signs
Pulse Resp BP Pulse Ox
61 11 138/52 97
10/24/23 22:52 10/24/23 22:52 10/24/23 22:52 10/24/23 22:52
Last Documented Vital Signs
Pulse Resp BP Pulse Ox
74 10 140/49 96
10/25/23 08:00 10/25/23 08:00 10/25/23 07:00 10/25/23 07:15
<Mauricio Olmos, DO - Last Filed: 10/25/23 09:55>
Orders/Labs/Results
Orders:
Orders
10/24/23 23:06
CMP [Comprehensive Metabolic Panel] Urgent
Complete Blood Count/With Diff Urgent
10/24/23 23:14
EKG- Treatment ONCE
10/25/23
Electrocardiogram (*1) Stat
Reason for Study: Chest Pain
Comment: NO ORDER RECIEVED
10/25/23 00:20
Bedside Glucose- Treatment ONCE
10/25/23 01:06
Lidocaine [Lidocaine 4% Patch] 1 patch TOPICAL NOW STA
10/25/23 01:30
Bedside Glucose- Treatment ONCE
10/25/23 01:32
Case Management Consult ONCE
Case Management Consult: [facility]
Requested By:: PT/FAMILY
Comment: recent hospitalization for acute LBP, L2 comp fx after fall. Recommended SNF which pt/
declined. Since d/c 2 days ago he admits that he can not take care of her, unable to get her
OOB d/t back pain. Requesting SNF-[facility]
10/25/23 01:34
Physical Therapy Consult [Pt Eval And Treat] Urgent
Treatment: PT eval for SNF eligibility
Activity Level: Out of Bed- Wheelchair
10/25/23 02:30
Bedside Glucose- Treatment ONCE
Abnormal Lab Results
10/24/23 10/24/23 10/25/23
22:52 23:06 00:28
RBC 4.19 L 10^6/uL
(4.20-5.40)
Hgb 10.7 L g/dL
(12.0-16.0)
Hct 33.1 L %
(37.0-47.0)
MCV 79.0 L fL
(81.0-99.0)
MCH 25.5 L pg
(27.0-31.0)
MCHC 32.3 L g/dL
(33.0-37.0)
RDW 15.9 H %
(11.5-14.5)
Plt Count 418 H 10^3/uL
(130-400)
Absolute Neuts (auto) 7.0 H 10^3/uL
(1.4-6.5)
Absolute Monos (auto) 0.7 H 10^3/uL
(0.1-0.6)
Lymphocytes % 14.9 L %
(20.5-51.1)
Sodium 133 L mmol/L
(135-145)
BUN 20 H mg/dl
(7-17)
Glucose 217 H mg/dl
(70-99)
Alkaline Phosphatase 130 H U/L
(38-126)
Albumin 3.4 L g/dl
(3.5-5.0)
POC Glucose 222 H mg/dl 128 H mg/dl
(70-99) (70-99)
10/25/23 10/25/23 10/25/23
03:02 04:04 05:06
RBC
Hgb
Hct
MCV
MCH
MCHC
RDW
Plt Count
Absolute Neuts (auto)
Absolute Monos (auto)
Lymphocytes %
Sodium
BUN
Glucose
Alkaline Phosphatase
Albumin
POC Glucose 139 H mg/dl 185 H mg/dl 230 H mg/dl
(70-99) (70-99) (70-99)
10/25/23
08:35
RBC
Hgb
Hct
MCV
MCH
MCHC
RDW
Plt Count
Absolute Neuts (auto)
Absolute Monos (auto)
Lymphocytes %
Sodium
BUN
Glucose
Alkaline Phosphatase
Albumin
POC Glucose 146 H mg/dl
(70-99)
10/24/23 23:06
10/24/23 23:06
Vital Signs
Initial and Last Documented VS:
Initial Vital Signs
Pulse Resp BP Pulse Ox
61 11 138/52 97
10/24/23 22:52 10/24/23 22:52 10/24/23 22:52 10/24/23 22:52
Last Documented Vital Signs
Pulse Resp BP Pulse Ox
74 10 140/49 96
10/25/23 08:00 10/25/23 08:00 10/25/23 07:00 10/25/23 07:15
<Ann Hernandez, DO - Last Filed: 10/25/23 07:45>
MDM/Problems Addressed
Differential Diagnosis Includes:
Patient presents via EMS with acute hypoglycemic episode most likely related to Humalog insulin administered this evening prior to dinner with reported poor oral intake for dinner.
She arrives to the ED awake and alert with initial blood sugar 258.
Repeat blood sugar 1 hour after arrival has trended down to 128. She is hungry and agreeable to consuming a snack. She complains of
Low back pain, similar pain which brought her to the hospital after a fall several days ago, found to have L2 vertebral compression fracture.
No recurrent falls but admits to marked difficulty caring for his since discharge 2 days ago. He has been unable to get her up out of bed due to increased back pain with attempted repositioning.
Both he and his agree that she requires fpc care until back pain is more manageable and she is overall physically stronger.
Will continue to monitor bedside glucose every hour to assess for recurrent hypoglycemia.
Will applied lidocaine patch to back.
Will plan for case management consult in the a.m. as well as physical therapy evaluation with plan to arrange for fpc facility acceptance and transfer.
Chronic conditions affecting care: DM and Other (Acute on chronic low back pain/L2 compression fracture/Chronic ambulatory dysfunction)
<Ann Hernandez, DO - Last Filed: 10/25/23 07:45>
*EKG
Interpreted by ED Provider?: Yes
Interpretation: normal
Comparison EKG: no changes (Unchanged from previous October 20, 2023 save for heart rate has decreased from 99 to now 58)
Rate: bradycardiac
Rhythm: sinus
[place]: normal axis
Interval: long QT
QRS Pattern: normal QRS
Ischemia: no ischemia
*In Flight Technician Interpretation
Rate: normal and bradycardiac
Interpretation: normal
Rhythm: sinus
*Critical Care Note
Total Time (30-74mins, 75-104mins- exclusive of procedures): Not Applicable
<Ann Hernandez, DO - Last Filed: 10/25/23 07:45>
Update Note
Update Note:
Patient has had no further episodes of hypo-Beatriz. Has eaten a small snack, blood sugar remained stable, slowly trending up.
Marked improvement in back pain after lidocaine patch applied. She has been resting comfortably.
As has had marked difficulty caring for his at home, inability to get her up out of bed into her wheelchair she requires fpc care/short stay in fpc rehab. Will plan for case management consult and PT evaluation
this morning
<Mauricio Olmos, DO - Last Filed: 10/25/23 09:55>
Update Note
Update Note:
Patient has had no further episodes of hypo-Beatriz. Has eaten a small snack, blood sugar remained stable, slowly trending up.
Marked improvement in back pain after lidocaine patch applied. She has been resting comfortably.
As has had marked difficulty caring for his at home, inability to get her up out of bed into her wheelchair she requires fpc care/short stay in fpc rehab. Will plan for case management consult and PT evaluation
this morning
9:50 AM care of patient was transitioned pending case management and physical therapy evaluation. Because rehab is going to be private pay, family is going to take her home. Case management assured patient and family that they will set up visiting
nurses and PT
ED Attending Note
<Ann Hernandez, DO - Last Filed: 10/25/23 07:45>
-
Portions of this chart may have been created with voice recognition software.� Occasional wrong word or��sound alike� substitutions may have occurred due to the inherent limitations of voice recognition software.
Discharge Plan
Departure
Patient Disposition: Home (Routine Discharge)
Date of Disposition: 10/25/23
Time of Disposition: 00:30
Patient with high blood pressure during this ER visit?: No
Discharge Problem:
Acute metabolic encephalopathy due to hypoglycemia, Compression fracture of lumbar vertebra, Acute on chronic ambulatory dysfunction, Functional paraparesis, Partner unable to care for patient
Prescriptions:
No Action
diltiazem HCl 240 MG capsule,extended release 24hr
240 mg PO DAILY Qty: 0 0RF
pantoprazole 40 MG tablet,delayed release (DR/EC)
40 mg PO DAILY Qty: 0 0RF
metoprolol tartrate 100 MG tablet
100 mg PO DAILY 0RF
metformin 500 MG tablet
1,000 mg PO BID 60 Days Qty: 0 0RF
Levemir FlexTouch U100 Insulin 300 UNIT/3 ML insulin pen
40 unit SC DAILY@0800
lidocaine 4 % Adhesive Patch,Medicated
1 patch topical DAILY Qty: 10 0RF
Rx Instructions:
apply to lumbar spine
polyethylene glycol 3350 [HealthyLax] 17 gram Powder In Packet
17 g PO DAILYPRN PRN (Reason: constipation) Qty: 0 0RF
celecoxib [Celebrex] 200 mg capsule
200 mg PO BID Qty: 20 0RF
insulin lispro [Humalog KwikPen Insulin] 100 unit/mL insulin pen
10 unit SC AC Qty: 15 0RF
Rx Instructions:
hold the dose if you skip a meal
Referrals:
Paul Rosales MD [Family Provider] - Call in 1-3 days for appt
Activity Restrictions/Additional Instructions:
Please return for any worsening symptoms.
You may return at any time if you have further concerns.
Please follow up with your doctor at the first available appointment, preferably this week.
Thank you for choosing [facility].
Interventions
Interventions:
*Risk Screen - Suicide Last Done: 10/24/23 23:02
*General Assessment Last Done: 10/24/23 22:57
*Neglect/Abuse Screening Last Done: 10/24/23 23:02
ED- Fall Risk Assessment Last Done: 10/24/23 23:02
*ED COVID-19 Vaccine History Last Done: 10/24/23 22:57
ED- Neurological Assessment Last Done: 10/24/23 23:02
Discharge Date and Time
Print Language: MOHAWK
[2023-10-25] MEDS: LIDOCAINE 4% PATCH 1 PATCH TOPICAL (01:43)
[2023-10-25 01:59] LABS: Glucose - Point of Care 94 mg/dl (70-99)
[2023-10-25 03:04] LABS: Glucose - Point of Care 139 mg/dl (70-99)
[2023-10-25 04:06] LABS: Glucose - Point of Care 185 mg/dl (70-99)
[2023-10-25 05:07] LABS: Glucose - Point of Care 230 mg/dl (70-99)
[2023-10-25 08:36] LABS: Glucose - Point of Care 146 mg/dl (70-99)
[2023-10-25] MEDS: PERCOCET 5/325 1 TABLET PO (10:07)
--- NOTE | 2023-10-25 10:17 | CM ---
CM met with patient and in room. CM advised that SNF placement would be private pay as patient does not have a qualifying three day stay. CM discussed private pay options. declined SNF and patient was in agreement. Patient has been
referred to [facility] previously. As per , RN is scheduled for first visit on 10/25. Patient's confirmed that he has a caregiver three days per week for 5 hours per day. CM advised that he may need additional support. CM provided
with private pay complex care nurse practitioner list.
CM will updated VN with ED visit.
== END 2023-10-25 11:04 | disposition home or self-care (01) ==
LOC: EMR 22:49
PROVIDERS: EMERGENCY PHYSICIAN Emergency Medicine; FAMILY PHYSICIAN Internal Medicine
DX: M48.56XA Collapsed vertebra, not elsewhere classified, lumbar region, initial encounter for fracture (principal); G93.41 Metabolic encephalopathy; E11.649 Type 2 diabetes mellitus with hypoglycemia without coma; S32.028A Other fracture of second lumbar vertebra, initial encounter for closed fracture; W19.XXXA Unspecified fall, initial encounter; R26.2 Difficulty in walking, not elsewhere classified; R61 Generalized hyperhidrosis; F44.4 Conversion disorder with motor symptom or deficit; E78.00 Pure hypercholesterolemia, unspecified; I10 Essential (primary) hypertension; K21.9 Gastro-esophageal reflux disease without esophagitis; G89.29 Other chronic pain; Z99.3 Dependence on wheelchair; Z79.4 Long term (current) use of insulin; Z93.3 Colostomy status; Z91.81 History of falling; Z98.0 Intestinal bypass and anastomosis status
CPT/HCPCS: 99284; 80053; 82962; 85025; 93005

== ENCOUNTER → 2023-10-30 16:32 | Outpatient (REF) | payer MEDICARE, OTHER, SELFPAY | LOC: MRI 16:32 | PROVIDERS: ATTENDING PHYSICIAN Internal Medicine | DX: S32.020A Wedge compression fracture of second lumbar vertebra, initial encounter for closed fracture (principal) | CPT/HCPCS: 72148 ==

== ENCOUNTER → 2023-11-06 10:34 | Outpatient (REF) | payer MEDICARE, OTHER, SELFPAY ==
[2023-11-06 11:37] LABS: % Basophils 1.1 % (0-2); % Eosinophils 1.5 % (0-6); % Immature Granulocytes 1.8 % (0-0.5); % Lymphocytes 13.4 % (20.5-51.1); % Monocytes 5.7 % (1.7-9.3); % Neutrophils 76.5 % (42.2-75.2); Absolute Basophils 0.1 10^3/uL (0-0.2); Absolute Eosinophils 0.1 10^3/uL (0-0.7); Absolute Immature Granulocytes 0.2 10^3/uL (0-0.05); Absolute Lymphocytes 1.1 10^3/uL (1.2-3.4); Absolute Monocytes 0.5 10^3/uL (0.1-0.6); Absolute Neutrophils 6.5 10^3/uL (1.4-6.5); Hematocrit 34.7 % (37.0-47.0); Hemoglobin 10.8 g/dL (12.0-16.0); Mean Corp Hgb Conc. 31.1 g/dL (33.0-37.0); Mean Corpuscular Hgb 25.3 pg (27.0-31.0); Mean Corpuscular Volume 81.3 fL (81.0-99.0); Mean Platelet Volume 9.2 fL (7.4-10.4); Nucleated Red Blood Cells % 0 %; Platelet Count 499 10^3/uL (130-400); Red Blood Cell Count 4.27 10^6/uL (4.20-5.40); Red Cell Dist. Width 15.3 % (11.5-14.5); Reticulocyte Count 1.5 % (0.4-2.8); White Blood Cell Count 8.4 10^3/uL (4.8-10.8)
[2023-11-06 12:54] LABS: Albumin 4.1 g/dl (3.5-5.0); Blood Urea Nitrogen 9 mg/dl (7-17); Carbon Dioxide 18 mmol/L (22-30); Chloride 103 mmol/L (98-107); Glucose 222 mg/dl (70-99); Phosphorus 3.7 mg/dl (2.5-4.5); Potassium 4.7 mmol/L (3.5-5.1); Sodium 136 mmol/L (135-145); eGFR > 60.00
== END ==
LOC: RADI 10:34
PROVIDERS: ATTENDING PHYSICIAN Internal Medicine
DX: S32.020A Wedge compression fracture of second lumbar vertebra, initial encounter for closed fracture (principal); W19.XXXA Unspecified fall, initial encounter
CPT/HCPCS: 36415; 80069; 85025; 85045

== ENCOUNTER → 2023-11-10 06:46 | Outpatient (REF) | payer MEDICARE, OTHER, SELFPAY ==
[2023-11-10] VITALS (12 sets, daily range): BP systolic 66–145; BP diastolic 44–87
[2023-11-10 07:15] LABS: INR 1.03; PT 13.3 Sec (11.4-14.6)
[2023-11-10 07:50] LABS: Glucose - Point of Care 147 mg/dl (70-99)
[2023-11-10] MEDS: ANCEF 10 IV (09:18)
[2023-11-10] MEDS: ROXICODONE 5 MG PO (10:40)
== END ==
LOC: RADI 06:46
PROVIDERS: ATTENDING PHYSICIAN Radiology Diagnostic Radiology; REFERRING PHYSICIAN Internal Medicine
DX: M80.08XA Age-related osteoporosis with current pathological fracture, vertebra(e), initial encounter for fracture (principal); D68.8 Other specified coagulation defects
CPT/HCPCS: 22514; 36415; 82962; 85610

== ENCOUNTER → 2024-01-16 11:58 | Outpatient (REF) | payer MEDICARE, OTHER, SELFPAY ==
[2024-01-16 12:57] LABS: ALT (SGPT) < 10 U/L (0-35); AST (SGOT) 18 U/L (14-36); Albumin 4.1 g/dl (3.5-5.0); Alkaline Phosphatase 134 U/L (38-126); Blood Urea Nitrogen 9 mg/dl (7-17); Calcium 9.6 mg/dl (8.4-10.2); Carbon Dioxide 28 mmol/L (22-30); Chloride 103 mmol/L (98-107); Glucose 96 mg/dl (70-99); Phosphorus 4.2 mg/dl (2.5-4.5); Sodium 138 mmol/L (135-145); Total Bilirubin 0.6 mg/dl (0.2-1.3); Total Protein 7.2 g/dl (6.3-8.2); eGFR > 60.00
[2024-01-16 14:41] LABS: Glycohemoglobin (HgbA1c) 7.1 % (4.0-5.6)
== END ==
LOC: REG 11:58
PROVIDERS: ATTENDING PHYSICIAN Internal Medicine
DX: E11.22 Type 2 diabetes mellitus with diabetic chronic kidney disease (principal); N18.30 Chronic kidney disease, stage 3 unspecified; D64.9 Anemia, unspecified
CPT/HCPCS: 36415; 80053; 83036; 84100

== ENCOUNTER → 2024-04-23 09:31 | Outpatient (REF) | payer MEDICARE, OTHER, SELFPAY ==
[2024-04-23 11:30] LABS: Glycohemoglobin (HgbA1c) 7.5 % (4.0-5.6)
== END ==
LOC: REG 09:31
PROVIDERS: ATTENDING PHYSICIAN Internal Medicine
DX: E11.65 Type 2 diabetes mellitus with hyperglycemia (principal)
CPT/HCPCS: 36415; 83036

== ENCOUNTER → 2024-07-27 10:57 | Outpatient (REF) | payer MEDICARE, OTHER, SELFPAY ==
[2024-07-27 13:11] LABS: % Basophils 0.9 % (0-2); % Eosinophils 2.2 % (0-6); % Immature Granulocytes 0.4 % (0-0.5); % Lymphocytes 13.9 % (20.5-51.1); % Monocytes 4.2 % (1.7-9.3); % Neutrophils 78.4 % (42.2-75.2); Absolute Basophils 0.1 10^3/uL (0-0.2); Absolute Eosinophils 0.2 10^3/uL (0-0.7); Absolute Lymphocytes 1.4 10^3/uL (1.2-3.4); Absolute Monocytes 0.4 10^3/uL (0.1-0.6); Absolute Neutrophils 8.1 10^3/uL (1.4-6.5); Hematocrit 35.1 % (37.0-47.0); Hemoglobin 10.6 g/dL (12.0-16.0); Mean Corp Hgb Conc. 30.2 g/dL (33.0-37.0); Mean Corpuscular Hgb 23.7 pg (27.0-31.0); Mean Corpuscular Volume 78.3 fL (81.0-99.0); Mean Platelet Volume 10.1 fL (7.4-10.4); Nucleated Red Blood Cells % 0 %; Platelet Count 425 10^3/uL (130-400); Red Blood Cell Count 4.48 10^6/uL (4.20-5.40); Red Cell Dist. Width 15.8 % (11.5-14.5); White Blood Cell Count 10.4 10^3/uL (4.8-10.8)
[2024-07-27 13:49] LABS: ALT (SGPT) 12 U/L (0-35); AST (SGOT) 17 U/L (14-36); Albumin 4.3 g/dl (3.5-5.0); Alkaline Phosphatase 138 U/L (38-126); Blood Urea Nitrogen 12 mg/dl (7-17); Calcium 9.3 mg/dl (8.4-10.2); Carbon Dioxide 26 mmol/L (22-30); Chloride 98 mmol/L (98-107); Glucose 210 mg/dl (70-99); Potassium 5.2 mmol/L (3.5-5.1); Sodium 135 mmol/L (135-145); Total Bilirubin 0.5 mg/dl (0.2-1.3); Total Protein 7.7 g/dl (6.3-8.2); eGFR > 60.00
[2024-07-27 14:15] LABS: Glycohemoglobin (HgbA1c) 8.2 % (4.0-5.6)
== END ==
LOC: REG 10:57
PROVIDERS: ATTENDING PHYSICIAN Internal Medicine
DX: E11.9 Type 2 diabetes mellitus without complications (principal); I10 Essential (primary) hypertension
CPT/HCPCS: 36415; 80053; 83036; 85025

== ENCOUNTER 2024-09-08 17:04 | Emergency (ER) | payer MEDICARE, OTHER, SELFPAY ==
[2024-09-08 17:22] VITALS: BP 148/86
[2024-09-08 17:48] LABS: % Basophils 0.6 % (0-2); % Eosinophils 1.7 % (0-6); % Immature Granulocytes 0.5 % (0-0.5); % Lymphocytes 14.9 % (20.5-51.1); % Neutrophils 77.3 % (42.2-75.2); Absolute Basophils 0.1 10^3/uL (0-0.2); Absolute Eosinophils 0.2 10^3/uL (0-0.7); Absolute Immature Granulocytes 0.1 10^3/uL (0-0.05); Absolute Lymphocytes 1.6 10^3/uL (1.2-3.4); Absolute Monocytes 0.6 10^3/uL (0.1-0.6); Absolute Neutrophils 8.5 10^3/uL (1.4-6.5); Hemoglobin 10.5 g/dL (12.0-16.0); Mean Corpuscular Hgb 23.3 pg (27.0-31.0); Mean Corpuscular Volume 77.6 fL (81.0-99.0); Mean Platelet Volume 8.7 fL (7.4-10.4); Nucleated Red Blood Cells % 0 %; Platelet Count 467 10^3/uL (130-400); Red Blood Cell Count 4.51 10^6/uL (4.20-5.40); Red Cell Dist. Width 16.1 % (11.5-14.5)
[2024-09-08 18:02] LABS: ALT (SGPT) 14 U/L (0-35); AST (SGOT) 19 U/L (14-36); Albumin 4.6 g/dl (3.5-5.0); Alkaline Phosphatase 156 U/L (38-126); Blood Urea Nitrogen 15 mg/dl (7-17); Calcium 10.1 mg/dl (8.4-10.2); Carbon Dioxide 25 mmol/L (22-30); Chloride 99 mmol/L (98-107); Glucose 329 mg/dl (70-99); Potassium 5.1 mmol/L (3.5-5.1); Sodium 137 mmol/L (135-145); Total Bilirubin 0.7 mg/dl (0.2-1.3); eGFR > 60.00
[2024-09-08 20:49] LABS: Glucose - Point of Care 280 mg/dl (70-99)
--- NOTE | 2024-09-08 22:54 | ED.GENMED ---
History of Present Illness
General
Chief Complaint: Anal/Rectal Problem
Source: patient and family
Exam Limitations: clinical condition (Aphasia, memory loss)
Time Seen by Provider: 09/08/24 20:13
History of Present Illness
History of Present Illness:
83-year-old female with a history of diabetes who presents with her was concerned because she complained of rectal pain. Patient's states that she was very uncomfortable and thought someone was wrong was worried. He also admits
that he did not give her her long-acting insulin today. He states she has been complaining about it for about a week. Patient is unable to contribute to that history. Patient offers no current complaints and currently denies any pain. She denies
abdominal pain or rectal pain. 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
Past History
Past History
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 Aphasia, Headache, ) and Other (L2 vertebral compression
fracture, chronic ambulatory dysfunction/wheelchair-bound)
ED Past Surgical History: Bowel resection (with Colostomy), Orthopedic (L knee aleksandar. Vertebroplasty) and Tonsilectomy
Social History
Tobacco: Non-smoker
Alcohol: Occasional
Drug: None
Personal:
Living: with family
Employment: Retired
Family History
Family History: Other (nc )
Phy Exam
Physical Exam
Physical Exam:
CONSTITUTIONAL Patient alert and oriented to person, . Well-appearing. Vital signs reviewed.
HEAD atraumatic, normocephalic.
EYES eyelids normal to inspection, Extraocular muscles intact, Conjunctiva normal, Sclera normal.
NECK normal range of motion, Trachea midline, no jugular venous distention.
RESPIRATORY CHEST No respiratory distress noted, Chest expansion equal
ABDOMEN abdomen nontender, Bowel sounds normal. No distention. Brown stool noted in colostomy bag
Rectal exam no obvious masses. No gross drainage. No obvious tenderness.
BACK normal inspection, no obvious deformities
UPPER EXTREMITY range of motion normal, Motor strength normal, no cyanosis, no edema.
LOWER EXTREMITY range of motion normal, Motor strength normal, no cyanosis, no edema.
NEURO No focal motor deficits, Cranial Nerves intact to screening exam.
Course
Orders/Labs/Results
Orders:
Orders
09/08/24 17:34
Complete Blood Count/With Diff Urgent
Comprehensive Metabolic Panel Urgent
09/08/24 21:13
CT Pelvis With Iv Contrast Urgent
Comment:
Reason For Exam: rectal pain
09/08/24 22:52
Urinalysis Reflex To Culture Urgent
09/08/24 22:54
Vital Signs- Treatment ONCE
Frequency: Once
Abnormal Lab Results
09/08/24 09/08/24
17:34 20:48
WBC 11.0 H 10^3/uL
(4.8-10.8)
Hgb 10.5 L g/dL
(12.0-16.0)
Hct 35.0 L %
(37.0-47.0)
MCV 77.6 L fL
(81.0-99.0)
MCH 23.3 L pg
(27.0-31.0)
MCHC 30.0 L g/dL
(33.0-37.0)
RDW 16.1 H %
(11.5-14.5)
Plt Count 467 H 10^3/uL
(130-400)
Abs Immat Gran (auto) 0.1 H 10^3/uL
(0-0.05)
Absolute Neuts (auto) 8.5 H 10^3/uL
(1.4-6.5)
Neutrophils % 77.3 H %
(42.2-75.2)
Lymphocytes % 14.9 L %
(20.5-51.1)
Glucose 329 H mg/dl
(70-99)
Alkaline Phosphatase 156 H U/L
(38-126)
POC Glucose 280 H mg/dl
(70-99)
09/08/24 17:34
09/08/24 17:34
Vital Signs
Initial and Last Documented VS:
Initial Vital Signs
Temp Pulse Resp BP Pulse Ox
98.4 F 114 20 148/86 95
09/08/24 17:22 09/08/24 17:22 09/08/24 17:22 09/08/24 17:22 09/08/24 17:22
Last Documented Vital Signs
Temp Pulse Resp BP Pulse Ox
98.4 F 110 20 157/83 95
09/08/24 17:22 09/08/24 23:04 09/08/24 23:04 09/08/24 23:04 09/08/24 23:04
MDM/Problems Addressed
Differential Diagnosis Includes:
Abscess, UTI, deep space infection, hemorrhoid, perianal abscess, fissure
MDM/Problems Addressed:
Rectal pain
*Radiology
Radiology exam reviewed: preliminary read by ED provider (No obvious free air)
*Pulse Oximetry
Patient hypoxic: no
*Critical Care Note
Total Time (30-74mins, 75-104mins- exclusive of procedures): Not Applicable
Data Reviewed
Source: patient and spouse
Patient Management
Escalation/DeEscalation of care consider admission/obs:
CT noted no deep space abscess. Await urinalysis. If positive will treat but okay for outpatient management
ED Attending Note
-
Portions of this chart may have been created with voice recognition software.� Occasional wrong word or��sound alike� substitutions may have occurred due to the inherent limitations of voice recognition software.
Discharge Plan
Departure
Patient Disposition: Home (Routine Discharge)
Date of Disposition: 09/08/24
Time of Disposition: 23:30
Patient with high blood pressure during this ER visit?: Yes
Discharge Problem:
Pain, rectal
Instructions: BLOOD PRESSURE
Prescriptions:
No Action
diltiazem HCl 240 MG capsule,extended release 24hr
240 mg PO DAILY Qty: 0 0RF
pantoprazole 40 MG tablet,delayed release (DR/EC)
40 mg PO DAILY Qty: 0 0RF
metoprolol tartrate 100 MG tablet
100 mg PO DAILY 0RF
metformin 500 MG tablet
1,000 mg PO BID 60 Days Qty: 0 0RF
Levemir FlexTouch U100 Insulin 300 UNIT/3 ML insulin pen
20 unit SC DAILY@0800
oxycodone 5 mg Tablet
5 mg PO Q4H PRN (Reason: pain)
insulin lispro [Humalog KwikPen Insulin] 100 unit/mL insulin pen
2 unit SC AC
Rx Instructions:
hold the dose if you skip a meal
Referrals:
Paul Rosales MD [Family Provider] -
Activity Restrictions/Additional Instructions:
Rectal Pain
Please see your doctor or your surgeon for follow-up in the next 1 week. Return immediately for fevers, recurrent pain, abdominal pain, vomiting or any other concerns.
Interventions
Interventions:
*Risk Screen - Suicide Last Done: 09/08/24 17:22
XE-[id number]-[id number] Assessment Last Done: 09/08/24 21:33
ED-Skin Assessment Last Done: 09/08/24 21:34
Discharge Date and Time
Print Language: DIVEHI
[2024-09-08 23:04] VITALS: BP 157/83
[2024-09-08 23:48] LABS: Urine Albumin 2+ (Neg - Trace); Urine Bilirubin Negative (Negative); Urine Character Cloudy (Clear); Urine Color Yellow; Urine Glucose 3+ (Negative); Urine Ketone Negative (Negative); Urine Leukocyte 3+ (Negative); Urine Nitrite Negative (Negative); Urine Occult Blood 3+ (Negative); Urine Urobilinogen Negative (Neg - 1+)
[2024-09-09 00:18] LABS: Urine Amorphous Seen; Urine Bacteria Many (Negative); Urine Mucus Many; Urine Squamous Cell >30 /LPF (Few)
[2024-09-09 00:19] LABS: Urine White Cell >100 /HPF (0-5)
[2024-09-09] MEDS: BACTRIM DS 800 MG/160 MG 1 TABLET PO (00:31)
[2024-09-09 00:35] VITALS: BP 175/83
== END 2024-09-09 00:39 | disposition home or self-care (01) ==
LOC: EMR 17:04
PROVIDERS: Student in an Organized Health Care Education/Training Program; EMERGENCY PHYSICIAN Emergency Medicine; FAMILY PHYSICIAN Internal Medicine
DX: K62.89 Other specified diseases of anus and rectum (principal); E11.9 Type 2 diabetes mellitus without complications; K21.9 Gastro-esophageal reflux disease without esophagitis; I10 Essential (primary) hypertension; E78.00 Pure hypercholesterolemia, unspecified; R47.01 Aphasia; Z90.49 Acquired absence of other specified parts of digestive tract; Z93.3 Colostomy status
CPT/HCPCS: 99284; 72193; 80053; 81003; 81015; 82962; 85025; 87086; Q9967

== ENCOUNTER → 2024-10-26 11:02 | Outpatient (REF) | payer MEDICARE, OTHER, SELFPAY ==
[2024-10-26 11:39] LABS: % Basophils 0.5 % (0-2); % Eosinophils 2.4 % (0-6); % Immature Granulocytes 0.4 % (0-0.5); % Lymphocytes 13.1 % (20.5-51.1); % Neutrophils 77.6 % (42.2-75.2); Absolute Basophils 0.1 10^3/uL (0-0.2); Absolute Eosinophils 0.2 10^3/uL (0-0.7); Absolute Lymphocytes 1.3 10^3/uL (1.2-3.4); Absolute Monocytes 0.6 10^3/uL (0.1-0.6); Absolute Neutrophils 7.8 10^3/uL (1.4-6.5); Hematocrit 32.2 % (37.0-47.0); Hemoglobin 9.9 g/dL (12.0-16.0); Mean Corp Hgb Conc. 30.7 g/dL (33.0-37.0); Mean Corpuscular Hgb 23.8 pg (27.0-31.0); Mean Corpuscular Volume 77.4 fL (81.0-99.0); Nucleated Red Blood Cells % 0 %; Platelet Count 428 10^3/uL (130-400); Red Blood Cell Count 4.16 10^6/uL (4.20-5.40); Red Cell Dist. Width 15.9 % (11.5-14.5)
[2024-10-26 12:26] LABS: Glycohemoglobin (HgbA1c) 9.2 % (4.0-5.6)
== END ==
LOC: REG 11:02
PROVIDERS: ATTENDING PHYSICIAN Internal Medicine
DX: E11.9 Type 2 diabetes mellitus without complications (principal); D64.9 Anemia, unspecified
CPT/HCPCS: 36415; 83036; 85025

== ENCOUNTER → 2024-11-01 11:03 | Outpatient (REF) | payer MEDICARE, OTHER, SELFPAY ==
[2024-11-01 11:39] LABS: % Basophils 0.8 % (0-2); % Eosinophils 2.5 % (0-6); % Immature Granulocytes 0.5 % (0-0.5); % Lymphocytes 17.8 % (20.5-51.1); % Neutrophils 73.4 % (42.2-75.2); Absolute Basophils 0.1 10^3/uL (0-0.2); Absolute Eosinophils 0.3 10^3/uL (0-0.7); Absolute Immature Granulocytes 0.1 10^3/uL (0-0.05); Absolute Lymphocytes 1.8 10^3/uL (1.2-3.4); Absolute Monocytes 0.5 10^3/uL (0.1-0.6); Absolute Neutrophils 7.6 10^3/uL (1.4-6.5); Hematocrit 31.8 % (37.0-47.0); Hemoglobin 9.7 g/dL (12.0-16.0); Mean Corp Hgb Conc. 30.5 g/dL (33.0-37.0); Mean Corpuscular Hgb 23.8 pg (27.0-31.0); Mean Corpuscular Volume 77.9 fL (81.0-99.0); Mean Platelet Volume 9.2 fL (7.4-10.4); Nucleated Red Blood Cells % 0 %; Platelet Count 420 10^3/uL (130-400); Red Blood Cell Count 4.08 10^6/uL (4.20-5.40); Red Cell Dist. Width 15.7 % (11.5-14.5); White Blood Cell Count 10.3 10^3/uL (4.8-10.8)
[2024-11-01 12:09] LABS: ALT (SGPT) 12 U/L (0-35); AST (SGOT) 15 U/L (14-36); Albumin 3.6 g/dl (3.5-5.0); Alkaline Phosphatase 115 U/L (38-126); Blood Urea Nitrogen 11 mg/dl (7-17); Calcium 9.4 mg/dl (8.4-10.2); Carbon Dioxide 27 mmol/L (22-30); Chloride 102 mmol/L (98-107); Glucose 139 mg/dl (70-99); Potassium 4.6 mmol/L (3.5-5.1); Sodium 139 mmol/L (135-145); Total Bilirubin 0.6 mg/dl (0.2-1.3); Total Protein 6.8 g/dl (6.3-8.2); eGFR > 60.00
[2024-11-01 12:18] LABS: Total Iron Binding Capacity 402 ug/dl (265-497)
[2024-11-01 12:40] LABS: Ferritin 5.9 ng/ml (11.1-264.0)
== END ==
LOC: REG 11:03
PROVIDERS: ATTENDING PHYSICIAN Internal Medicine
DX: D50.9 Iron deficiency anemia, unspecified (principal); E11.9 Type 2 diabetes mellitus without complications
CPT/HCPCS: 36415; 80053; 82728; 83550; 85025

== ENCOUNTER → 2025-05-15 13:31 | Outpatient (REF) | payer MEDICARE, OTHER, SELFPAY ==
[2025-05-15 14:36] LABS: Hematocrit 42.9 % (37.0-47.0); Hemoglobin 13.8 g/dL (12.0-16.0); Mean Corp Hgb Conc. 32.2 g/dL (33.0-37.0); Mean Corpuscular Volume 89.9 fL (81.0-99.0); Nucleated Red Blood Cells % 0 %; Platelet Count 308 10^3/uL (130-400); Red Cell Dist. Width 13.0 % (11.5-14.5)
[2025-05-15 15:15] LABS: ALT (SGPT) 17 U/L (0-35); AST (SGOT) 17 U/L (14-36); Albumin 4.2 g/dl (3.5-5.0); Alkaline Phosphatase 133 U/L (38-126); Blood Urea Nitrogen 9 mg/dl (7-17); Calcium 9.5 mg/dl (8.4-10.2); Carbon Dioxide 28 mmol/L (22-30); Chloride 99 mmol/L (98-107); Glucose 269 mg/dl (70-99); Iron 90 ug/dl (37-170); Potassium 4.6 mmol/L (3.5-5.1); Sodium 135 mmol/L (135-145); Total Protein 7.7 g/dl (6.3-8.2); eGFR > 60.00
[2025-05-15 15:24] LABS: Total Iron Binding Capacity 305 ug/dl (265-497)
[2025-05-15 15:25] LABS: Microalb - Urine Creatinine 171.300 mg/dl
[2025-05-15 15:29] LABS: Microalbumin, Random Urine 10.0 mg/dl (0.6-1.7)
[2025-05-16 06:31] LABS: Glycohemoglobin (HgbA1c) 8.9 % (4.0-5.9)
== END ==
LOC: REG 13:31
PROVIDERS: ATTENDING PHYSICIAN Internal Medicine
DX: I10 Essential (primary) hypertension (principal); E78.5 Hyperlipidemia, unspecified; E11.22 Type 2 diabetes mellitus with diabetic chronic kidney disease; D50.9 Iron deficiency anemia, unspecified
CPT/HCPCS: 36415; 80053; 82043; 82570; 83036; 83540; 83550; 85025